=== PATIENT | female | born 1965 | race Caucasian/White ===

== ENCOUNTER 2023-04-13 12:21 | Emergency (ER) | payer MEDICARE, MEDICAID ==
[~2023-04-13] VITALS: Ht 175.3 cm; Wt 78.8 kg
[2023-04-13 12:40] VITALS: BP 146/79; PULSE 71; RESP 16; TEMP 99; O2SAT 98
[2023-04-13] MEDS ORDERED: AMOX-580 PO (13:05)
[2023-04-13] MEDS ORDERED: TRAM50TA2 PO ×2 (13:05→13:30)
== END 2023-04-13 13:20 | disposition home or self-care (01) ==
LOC: ER 12:22
DX: K04.7 Periapical abscess without sinus (principal); Z79.2 Long term (current) use of antibiotics; Z79.899 Other long term (current) drug therapy
CPT/HCPCS: 99283